=== PATIENT | female | born 1985 ===

== ENCOUNTER 2018-06-16 21:48 | Emergency (ER) | payer BC, OTHER ==
--- NOTE | 2018-06-16 22:07 | ED PDOC ---
HPI: Psych/Substance Abuse Time Seen by Provider: 06/16/18 22:04 Chief Complaint (Nursing): Psychiatric Evaluation Chief Complaint (Provider): crisis eval History Per: Patient Additional Complaint(s): 32 year old female presents to ED for crisis eval. Patient had an argument at home with her parents and brother and brother called police concerned patient may do something to harm herself. Patient states she is not suicidal or homicidal at this time. Patient admits to drinking more in the past few weeks because she is stressed due to going through a divorce. Patient denies drug use. She offers no medical complaints at this time. Past Medical History Reviewed: Historical Data, Nursing Documentation, Vital Signs Vital Signs: Last Vital Signs Temp 97.5 F L 06/16/18 21:58 Pulse 123 H 06/16/18 21:58 Resp 20 06/16/18 21:58 BP 127/77 06/16/18 21:58 Pulse Ox 96 06/16/18 21:58 - Medical History PMH: Anxiety - Family History Family History: States: No Known Family Hx - Living Arrangements Living Arrangements: With Family - Social History Current smoker - smoking cessation education provided: Yes Alcohol: Social Drugs: Denies - Home Medications Home Medications: Ambulatory Orders Medication Instructions Recorded Famotidine [Pepcid] 20 mg PO BID #30 tab 08/04/17 Sucralfate [Carafate] 1 gm PO BID #20 tab 08/04/17 - Allergies Allergies/Adverse Reactions: Allergies Allergy/AdvReac Type Severity Reaction Status Date / Time Penicillins Allergy Severe RASH Verified 11/11/16 09:23 sulfamethoxazole Allergy Verified 11/11/16 09:23 [From Bactrim] trimethoprim [From Bactrim] Allergy Verified 11/11/16 09:23 Review of Systems ROS Statement: Except As Marked, All Systems Reviewed And Found Negative Psych: Positive for: Other (fight with parents). Negative for: Suicidal ideation Physical Exam - Reviewed Nursing Documentation Reviewed: Yes Vital Signs Reviewed: Yes - Physical Exam Appears: Positive for: Well, Non-toxic, No Acute Distress Skin: Positive for: Normal Color. Negative for: Rash Eye Exam: Positive for: Normal appearance Cardiovascular/Chest: Positive for: Regular Rate, Rhythm Respiratory: Positive for: Normal Breath Sounds. Negative for: Respiratory Distress Extremity: Positive for: Normal ROM Neurologic/Psych: Positive for: Alert, Oriented - ECG O2 Sat by Pulse Oximetry: 96 Pulse Ox Interpretation: Normal Medical Decision Making Medical Decision Makin32 year old here for crisis eval Plan: Crisis consult 1:1 due to potential risk of elopement As per crisis counselor and psychiatrist reconciling clerk Dr. Zavaleta, patient does not meet criteria for admission and is stable for discharge. Patient was provided with outpatient resources for follow-up. Disposition - Clinical Impression Clinical Impression: Adjustment disorder - Patient ED Disposition Is Patient to be Admitted: No Counseled Patient/Family Regarding: Need For Followup - Disposition Referrals: [facility] [Outside] Disposition: Routine/Home Disposition Time: 23:34 Condition: STABLE Additional Instructions: Follow up as directed. Instructions: Adjustment Disorder Forms: [employer] (Armenian)
[2018-06-17 00:02] VITALS: BP 105/63; PULSE 71; RESP 16; TEMP 98.5; O2SAT 97
== END 2018-06-17 00:04 | disposition home or self-care (01) ==
LOC: H.ER 21:48
DX: F43.22 Adjustment disorder with anxiety (principal); Z88.0 Allergy status to penicillin